=== PATIENT | female | born 1975 | race Caucasian/White ===

== ENCOUNTER → 2025-01-12 15:43 | Outpatient (CLI) | payer BC, SELFPAY ==
--- NOTE | 2025-01-12 15:45 | DI.US.S_ITS ---
PROCEDURE: US PELVIC COMPLETE INDICATIONS: OVARIAN MASS RT TECHNIQUE: Real-time scanning was performed of the pelvic organs, with image documentation. Additional endovaginal scanning was necessary due to incomplete visualization of the adnexal and endometrial structures by transabdominal scanning. COMPARISON: None. FINDINGS: Uterus: Uterus is retroverted and normal in size at 5.9 x 5.2 x 3.9 cm. The myometrium is heterogeneous. The endometrium measures 4 mm combined thickness. Right anterior intramural fibroid measuring 1.3 x 1.2 x 1 cm. Small nabothian cysts. Ovaries: The right ovary measures 3 x 2.5 x 2.3 cm, with a calculated ovarian volume of 9 cc. The left ovary measures 2.9 x 1.6 x 1.1 cm, with a calculated ovarian volume of 3 cc. The ovaries have a normal sonographic appearance. Less than 12 follicles can be seen in each ovary. No adnexal masses are seen. Other: No pathologic free abdominal or pelvic fluid. IMPRESSION: 1. No ovarian mass or significant cyst is identified. -Recommend comparison with prior imaging when available. -If clinically indicated pelvic MRI with IV contrast could be considered for further evaluation, especially if high suspicion for endometrioma 2. Endometrium measures 4 mm. Small fibroid measuring 1.3 cm. We strive to produce accurate, complete, and clear reports of imaging services. To assist us in improving patient care, this report was composed using standard report templates and voice recognition software. Therefore, it may contain abnormal punctuation, insertions and/or omissions. Occasional wrong-word or sound-alike substitutions may occur. Though we review the report and make efforts to correct it, we do recommend that the report be read carefully in proper context to recognize any text inaccuracies. Dictated by: Nilay Boyd M.D. on 01/13/2025 at 9:31 Approved by: Nilay Boyd M.D. on 01/13/2025 at 9:36
== END ==
PROVIDERS: Referring Provider Registered Nurse; Visit Provider Registered Nurse
DX: N83.8 Other noninflammatory disorders of ovary, fallopian tube and broad ligament (principal); D25.1 Intramural leiomyoma of uterus
CPT/HCPCS: 76830; 76856

== ENCOUNTER → 2025-02-15 12:35 | Outpatient (CLI) | payer BC, SELFPAY ==
--- NOTE | 2025-02-15 12:38 | DI.MG.S_ITS ---
MM screening mammo BI: 02/15/2025. BI-RADS: 1 CLINICAL: 49-year old female for bilateral screening mammogram. Tyrer-Cuzick lifetime risk of 6.6%. No personal or first-degree family history of breast cancer. PRIOR EXAMS: Mammogram(s) from: 05/08/22, 02/28/21. MAMMOGRAPHY TECHNIQUE: 2D and 3D (tomosynthesis) digital mammographic views obtained, with additional images as needed for full coverage. Current study was also evaluated with a Computer Aided Detection (CAD) system. DENSITY B. There are scattered areas of fibroglandular density. MAMMOGRAPHY FINDINGS Bilateral: No suspicious mass, asymmetry, microcalcification, or other abnormality seen. No significant change from comparison. IMPRESSION: * No evidence of malignancy. RECOMMENDATIONS Bilateral * Annual screening mammography. OVERALL ASSESSMENT CATEGORY BI-RADS-1: Negative. The [employer] recommends annual screening mammography beginning at age 40 for women with average risk of breast cancer. ELECTRONICALLY SIGNED: Dominique Mora M.D. on 02/15/2025 at 06:26:42 PM PT Interpreting Station ID: [id number]
== END ==
PROVIDERS: PCP Registered Nurse; Referring Provider Registered Nurse; Visit Provider Registered Nurse
DX: Z12.31 Encounter for screening mammogram for malignant neoplasm of breast (principal)
CPT/HCPCS: 77063; 77067